=== PATIENT | female | born 1990 | race Asian ===

== ENCOUNTER 2019-03-25 19:50 | Inpatient (IN) | payer BC ==
[2019-03-25 21:41] LABS: BASO % 0.6 % (0-2.0); EOS % 1.2 % (0-4.5); HEMATOCRIT 35.4 % (32.4-45.2); HEMOGLOBIN 11.5 GM/dL (10.7-15.3); LYMPH % 24.2 % (8-40); MCH 29.3 pg (25.7-33.7); MCHC 32.5 g/dl (32.0-36.0); MEAN CELL VOLUME 90.4 fl (80-96); MEAN PLT VOLUME 10.4 fl (7.5-11.1); MONO % 10.8 % (3.8-10.2); NEUT % 63.2 % (42.8-82.8); PLATELET COUNT 154 K/MM3 (134-434); RBC 3.91 M/mm3 (3.60-5.2); RDW 16.5 % (11.6-15.6); WHITE BLOOD COUNT 7.3 K/mm3 (4.0-10.0)
[2019-03-25 22:03] LABS: INR 0.88 (0.83-1.09); PROTHROMBIN TIME (PATIENT) 10.4 SEC (9.7-13.0)
[2019-03-25 22:05] LABS: ACTIVATED PTT 25.3 SECONDS (25.2-36.5); BLOOD UREA NITROGEN 9.4 mg/dL (7-18); CALCIUM 8.9 mg/dL (8.5-10.1); CREATININE 0.5 mg/dL (0.55-1.3); POTASSIUM 3.7 mmol/L (3.5-5.1)
[2019-03-25] MEDS ORDERED: BUTORPHANOL TARTRATE 1 MG/ML VIAL IVPB ONE (22:22)
[2019-03-25] MEDS ORDERED: PROMETHAZINE HCL 25 MG/1 ML VIAL IVPUSH ONE (22:22)
[2019-03-25] MEDS ORDERED: DINOPROSTONE 10 MG VAGINAL SUPPOSITORY VG ONE (22:24)
[2019-03-25] MEDS ORDERED: AMPICILLIN SODIUM 2 GM VIAL IVPB ONE (23:00)
[2019-03-25] MEDS: ELECTROLYTE-148 SOLN 1,000 ML IV SCH (23:00)
--- NOTE | 2019-03-25 23:20 | HP ---
Past Medical History - Primary Care Physician PCP:: Carol Saba - Admission Chief Complaint: Labor. POst dates History of Present Illness: 28 yo EDC EGA admitted for cervidal induction History Source: Patient Home Medications - Allergies Allergies/Adverse Reactions: Allergies Allergy/AdvReac Type Severity Reaction Status Date / Time No Known Allergies Allergy Verified 03/20/19 16:22 - Home Medications Home Medications: Ambulatory Orders Vits96/Iron Fum/Folic [ Tablet] 1 tab PO DAILY 03/20/19 Review of Systems - Review of Systems Constitutional: reports: No Symptoms Eyes: reports: No Symptoms HENT: reports: No Symptoms Neck: reports: No Symptoms Cardiovascular: reports: No Symptoms Respiratory: reports: No Symptoms Gastrointestinal: reports: No Symptoms Genitourinary: reports: No Symptoms Breasts: reports: No Symptoms Reported Musculoskeletal: reports: No Symptoms Integumentary: reports: No Symptoms Neurological: reports: No Symptoms Endocrine: reports: No Symptoms Hematology/Lymphatic: reports: No Symptoms Psychiatric: reports: No Symptoms Physical Exam - Maternity Vital Signs: Vital Signs Temperature 98.9 F 03/25/19 22:00 Pulse Rate 77 03/25/19 22:00 Respiratory Rate 20 03/25/19 22:00 Blood Pressure 102/68 03/25/19 22:00 O2 Sat by Pulse Oximetry (%) Breast(s): Yes: WNL - Abdominal Exam/OB Number of Fetuses: Single Presentation: Vertex Category: I Accelerations: Non-Uniform Decelerations: None - Vaginal Exam/OB Vaginal Bleediing: No Dilatation (cm): closed Effacement (%): 60 Presentation: Vertex/Position Station: -1 - Physical Exam Musculoskeletal: Yes: WNL Extremities: Yes: WNL Edema: No Psychiatric: Yes: WNL, Alert, Oriented - Labs Lab Results: CBC, BMP 03/25/19 21:15 03/25/19 21:15 Hemorrhage Risk Assessment - Risk Factors Risk Score: 0 Risk Level: Low Risk Problem List - Problems (1) Post-dates Code(s): O48.0 - POST-TERM Qualifiers: Post-term type: 40-42 weeks gestation Qualified Code(s): O48.0 - Post-term Assessment/Plan 41 week post dates GBS CAt 1 Plan dhiraj cervidil stadol
[2019-03-25] MEDS ORDERED: AMPICILLIN SODIUM 2 GM VIAL ONE (23:56)
[2019-03-26 00:16] VITALS: BMI 29.2
[2019-03-26] MEDS: AMPICILLIN SODIUM 1 GM VIAL IVPB SCH ×6 (03:00→23:00)
[2019-03-26] MEDS ORDERED: AMPICILLIN SODIUM 1 GM VIAL ONE ×5 (04:21→18:31)
[2019-03-26] MEDS: OXYTOCIN 30 UNITS in 0.9% NS 30 UNIT/500 ML INFUS.BAG IVPB SCH ×2 (05:15)
[2019-03-26] MEDS ORDERED: OXYTOCIN 30 UNITS in 0.9% NS 30 UNIT/500 ML INFUS.BAG IVPB ONE (05:18)
--- NOTE | 2019-03-26 05:56 | LDN ---
Oxytocin Pre-Use Checklist Date and Time completed: 03/26/19 0555 Physician order on chart: Yes Current history and physical on chart: Yes Indication for induction is documented: Yes record on chart: Yes Pelvis is documented by physician to be clinically adequate: Yes Estimated weight within past week (clinical or sono): Less than 4500 grams in a non-diabetic woman Gestational age is documented: Yes Consent signed: Yes Status of the cervix is assessed and documented: Yes Presentation is assessed and documented: Yes Assessment completed and includes: A minimum of 30 minutes of monitoring is required prior to start, At least 2 accelerations (15bpm x 15sec) in 30 minutes are present
[2019-03-26] MEDS ORDERED: OXYTOCIN 30 UNITS in 0.9% NS 30 UNIT/500 ML INFUS.BAG IVPB SCH (06:00)
[2019-03-26] MEDS: ELECTROLYTE-148 SOLN 1,000 ML IV SCH ×2 (08:00→22:30)
[2019-03-26 08:52] LABS: POC NITRAZINE POS
--- NOTE | 2019-03-26 09:50 | PN ---
Ante-Partal Exam - Subjective Vital Signs: Vital Signs Temperature 98.4 F 03/26/19 08:00 Pulse Rate 87 03/26/19 08:00 Respiratory Rate 18 03/26/19 08:00 Blood Pressure 112/56 L 03/26/19 08:00 O2 Sat by Pulse Oximetry (%) Bleeding: Yes Bleeding Description: Mild Headache: No Visual changes: No Right upper quadrant pain: No Pain (scale 1-10): 7 - Contractions Contractions: Yes Regularity: Regular Intensity: Moderate - Exam during Labor Heart Rate: 140 Variability: Moderate Category: I Monitor Accelerations: Present Monitor Decelerations: None Exam: Vaginal Dilatation (cm): 1 Effacement (%): 90 Amniotic Membrane Status: Ruptured Amniotic Fluid: Clear Station: -2 - Assessment/Plan Assessment/Plan: 28 y/o P0 with SIUP at 41 weeks, IOL s/p cervidil, on pitocin, s/p SROM continue pitocin
--- NOTE | 2019-03-26 19:45 | PN ---
Ante-Partal Exam - Subjective Subjective: Pitocin at 9 pt tolerating contractions Vital Signs: Vital Signs Temperature 98.2 F 03/26/19 19:00 Pulse Rate 88 03/26/19 19:00 Respiratory Rate 20 03/26/19 19:00 Blood Pressure 122/70 03/26/19 19:00 O2 Sat by Pulse Oximetry (%) Bleeding: Yes Bleeding Description: Mild Headache: No Visual changes: No Right upper quadrant pain: No - Contractions Contractions: Yes Regularity: Regular Intensity: Mod/Strong - Exam during Labor Heart Rate: 140 Variability: Moderate Category: I Monitor Accelerations: Present Monitor Decelerations: None Exam: Vaginal Dilatation (cm): 1.5 Effacement (%): 80 Amniotic Membrane Status: Ruptured Presentation: Vertex Station: -2 - Assessment/Plan Assessment/Plan: Pt tolerating labor continue with pitocin at this time re evaluate in a few hours/if pt desires medication
--- NOTE | 2019-03-26 23:17 | PN ---
Ante-Partal Exam - Subjective Subjective: Pt feeling more uncomfortable, desires to know options. Vital Signs: Vital Signs Temperature 98.1 F 03/26/19 22:00 Pulse Rate 89 03/26/19 22:00 Respiratory Rate 20 03/26/19 22:00 Blood Pressure 121/75 03/26/19 22:00 O2 Sat by Pulse Oximetry (%) Bleeding: Yes Bleeding Description: Mild Headache: No Visual changes: No Right upper quadrant pain: No - Contractions Contractions: Yes Regularity: Regular Intensity: Mod/Strong - Exam during Labor Heart Rate: 150 Variability: Moderate Category: I Monitor Accelerations: Present Monitor Decelerations: None Exam: Vaginal Dilatation (cm): 2 Effacement (%): 80 Amniotic Membrane Status: Ruptured Presentation: Vertex Station: -2 - Assessment/Plan Assessment/Plan: Pt with minimal cervical change from 1cm this a.m. at 9am to 2cm now on pitocin since 6am. Pt desires delivery at this time. R/b/A discussed, plan made for c section informed consent obtained NPO, Brasher, prep, Bicitra anesthesia/nursery made aware
[2019-03-26] MEDS ORDERED: CITRIC ACID/SODIUM CITRATE 30 ML UNIT-DOSE CUP PO ONE (23:29)
[2019-03-26] MEDS ORDERED: morphine SULFATE/PF 0.5 MG/ML (2cc Syringe - QUVA) ONE (23:49)
[2019-03-27] MEDS ORDERED: IBUPROFEN 800 MG/8 ML IJ IVPB PRN (00:01)
[2019-03-27] MEDS ORDERED: oxyCODONE HCL 5 MG TABLET PO PRN (00:01)
[2019-03-27] MEDS ORDERED: METHYLERGONOVINE MALEATE 0.2 MG/1 ML AMP IM PRN (00:01)
[2019-03-27] MEDS ORDERED: OXYTOCIN 10 UNITS/ML VIAL ONE (00:15)
--- NOTE | 2019-03-27 01:07 | OP ---
Operative Note - Note: Operative Date: 03/27/19 Pre-Operative Diagnosis: failed induction of labor, right ovarian cyst, IUP at 41 weeks Operation: primary LTCS, left para tubal cystectomy, right para ovarian cystectomy Findings: left 3cm paratubal cyst, right 5cm para ovarian cyst Surgeon: Makenna Srivastava Cyber Defense Analyst: Bijal Alberts Anesthesiologist/ENVIRONMENTAL TECHNICIAN: Carlos Valle Anesthesia: Spinal Specimens Removed: placenta, right para ovarian cyst wall Estimated Blood Loss (mls): 800 Operative Report Dictated: Yes
[2019-03-27] MEDS ORDERED: OXYTOCIN 20 UNITS in 0.9% NS 20 UNIT/1,000 ML INFUS.BAG IV ONE ×2 (01:27→08:34)
[2019-03-27] MEDS ORDERED: OXYTOCIN 20 UNITS in 0.9% NS 20 UNIT/1,000 ML INFUS.BAG IV SCH (08:15)
--- NOTE | 2019-03-27 10:43 | OP ---
DATE OF OPERATION: 03/27/2019 PREOPERATIVE DIAGNOSIS: Failed induction of labor, intrauterine at 41 weeks, right ovarian cyst. POSTOPERATIVE DIAGNOSIS: Failed induction of labor, intrauterine at 41 weeks, right ovarian cyst. PROCEDURE: Primary low transverse section, left paratubal cystectomy, and right paraovarian cystectomy. SURGEON: Makenna Srivastava DO ANESTHESIA: Spinal by Carlos Valle M.D. PHARMACY MESSENGER: Bijal Alberts MD COMPLICATIONS: None. Sponge, needle, and instrument count correct. ESTIMATED BLOOD LOSS: 800 mL. DISPOSITION: Stable to PACU. BRIEF HISTORY AND PROCEDURE: Patient is a 28-year-old female who was admitted to [facility] on March 25, 2019, for induction of labor. She underwent a Cervidil induction and then after spontaneous rupture of membranes was augmented with Pitocin. The patient was on Pitocin for approximately 20 hours and had made minimal cervical change from 0.5 cm dilated to 1.5 cm dilated. At this point, the patient was requesting a section secondary to the failed induction of labor. The plan was made to proceed with section. Consents for the procedure were signed. The patient was then taken back to the operating room. Given spinal anesthesia by Dr. Valle. She was prepped and draped in the usual sterile fashion in the dorsal supine position. A Brasher catheter was placed under sterile conditions. A hard time-out was performed. A Pfannenstiel skin incision was created in the skin with a scalpel and carried to the underlying layer of rectus fascia sharply. The fascia was incised on either side of the midline sharply, and the fascial incision was carried in superolateral direction sharply. The fascia was tented upward and dissected off the underlying layer of rectus fascia sharply. The musculature was identified, laterally, and the peritoneum was identified and entered bluntly and carefully dissected to allow for adequate room for delivery. A bladder blade was then inserted. A transverse incision was created in the lower uterine segment and extended in superolateral direction bluntly. The was then delivered from the right occiput transverse position. The head and bilateral shoulders were delivered with ease along with the remainder of the infant. The cord was clamped and and cut. The infant was taken over to the warmer to be assessed by the nursery staff where Apgars of 9 and 9 were assigned. Placenta was delivered intact and manually extracted. The uterus was exteriorized from the abdomen, inspected, and cleared of all amniotic membrane and debris with a dry lap sponge. The hysterotomy was reapproximated in a double-layered closure using 0 Biosyn in both layers in a running, locked fashion. Excellent hemostasis was achieved. A left paratubal cyst was noted at this time, which was ruptured and drained. The right paraovarian approximately 5-cm cyst was appreciated at this time, which was dissected away from the peritoneum next to the ovary using blunt and sharp dissection. The defect was cauterized with the Bovie device. A piece of Surgicel was placed, and it was sewn over to close the defect. Excellent hemostasis was achieved. The uterus was placed back in the abdomen. Bilateral gutters were inspected and cleared of all blood clot and debris. The hysterotomy was again noted to be hemostatic. The peritoneum was reapproximated using 2-0 chromic in a running fashion. The musculature was reapproximated in a single interrupted suture using 1 Vicryl. The fascia was reapproximated using 1 Vicryl in a running fashion. The subcutaneous tissue was irrigated and reapproximated using 2 interrupted sutures of 1 Vicryl , and the skin was reapproximated using 3-0 Vicryl in a subcuticular fashion. Steri- Strips were applied. The patient tolerated the procedure well and is recovering in stable condition after the procedure. Sponge, needle, and instrument count was reported to be correct. MAKENNA SRIVASTAVA DO /[id number] MTDD
[2019-03-27] MEDS: SIMETHICONE 80 MG TAB.CHEW (FP) PO PRN (21:20)
[2019-03-27] MEDS: oxyCODONE HCL 5 MG TABLET PO PRN (21:20)
[2019-03-28] MEDS ORDERED: BISACODYL 10 MG SUPP.RECT RC PRN (00:01)
[2019-03-28] MEDS: IBUPROFEN 600 MG TABLET (FP) PO PRN ×5 (02:18→22:29)
[2019-03-28] MEDS: oxyCODONE HCL 5 MG TABLET PO PRN ×5 (02:18→22:29)
[2019-03-28] MEDS: SIMETHICONE 80 MG TAB.CHEW (FP) PO PRN ×4 (02:18→22:29)
[2019-03-28 07:54] LABS: BASO % 0.4 % (0-2.0); EOS % 0.7 % (0-4.5); HEMATOCRIT 25.7 % (32.4-45.2); HEMOGLOBIN 8.5 GM/dL (10.7-15.3); LYMPH % 10.6 % (8-40); MEAN PLT VOLUME 9.7 fl (7.5-11.1); MONO % 6.3 % (3.8-10.2); PLATELET COUNT 139 K/MM3 (134-434); RBC 2.82 M/mm3 (3.60-5.2); RDW 17.1 % (11.6-15.6); WHITE BLOOD COUNT 13.3 K/mm3 (4.0-10.0)
--- NOTE | 2019-03-28 08:24 | PN ---
Progress Note (short form) - Note Progress Note: Anesthesia postop note, POD#1. S/P under spinal with duramorph. Pat seen amd examined. VSS. ambulating, Tolerating PO. Pain well controlled. Score 2-4/10. No apparent post anesthesia complications.
[2019-03-28] MEDS: FERROUS SO4 325 MG TABLET (FP) PO SCH (22:29)
[2019-03-29] MEDS: IBUPROFEN 600 MG TABLET (FP) PO PRN ×4 (04:57→20:43)
[2019-03-29] MEDS: oxyCODONE HCL 5 MG TABLET PO PRN ×4 (04:58→20:41)
[2019-03-29] MEDS: SIMETHICONE 80 MG TAB.CHEW (FP) PO PRN ×2 (09:12→21:23)
[2019-03-29] MEDS: FERROUS SO4 325 MG TABLET (FP) PO SCH ×2 (09:12→21:23)
--- NOTE | 2019-03-29 11:49 | PN ---
Post Note - Post Date of Delivery: 03/27/19 Vital Signs: Vital Signs - 24 hr 03/28/19 03/29/19 22:00 08:00 Temperature 97.5 F L 97.9 F Pulse Rate 82 93 H Respiratory 18 20 Rate Blood Pressure 91/52 L 96/65 - Subjective Subjective: No Complaints - Objective Breast: Not engorged Abdomen: Soft, Non-tender Uterus: Fundus firm Vagina: Scant lochia Extremities: Non-tender - Assessment/Plan (1) Post-dates Assessment: Other (POD2) Plan: Routine Care
[2019-03-30 07:41] LABS: BASO % 0.4 % (0-2.0); EOS % 2.5 % (0-4.5); HEMATOCRIT 25.9 % (32.4-45.2); HEMOGLOBIN 8.6 GM/dL (10.7-15.3); LYMPH % 13.9 % (8-40); MCH 30.1 pg (25.7-33.7); MCHC 33.3 g/dl (32.0-36.0); MEAN CELL VOLUME 90.3 fl (80-96); MONO % 5.9 % (3.8-10.2); NEUT % 77.3 % (42.8-82.8); PLATELET COUNT 183 K/MM3 (134-434); RBC 2.86 M/mm3 (3.60-5.2); RDW 17.5 % (11.6-15.6); WHITE BLOOD COUNT 9.7 K/mm3 (4.0-10.0)
[2019-03-30] MEDS: IBUPROFEN 600 MG TABLET (FP) PO PRN ×2 (08:14→12:54)
[2019-03-30] MEDS: SIMETHICONE 80 MG TAB.CHEW (FP) PO PRN ×2 (08:14→12:54)
[2019-03-30 08:43] VITALS: BP 112/85; PULSE 105; TEMP 98.9
[2019-03-30] MEDS: FERROUS SO4 325 MG TABLET (FP) PO SCH (09:40)
--- NOTE | 2019-04-01 17:18 | PATH ---
Surgical Pathology Report Patient Name: CHELSEY FORBES [facility]. Rec. #: [id number] /Age/Gender: 1990 (Age: 28) / F Account: [id number] Location: [facility] OBS/PLANNER Taken: 03/27/2019 Received: 03/27/2019 Reported: 04/01/2019 Physicians: Makenna Srivastava M.D. Specimen(s) Received A: PLACENTA B: RIGHT PARAOVARIAN CYST Clinical History , IUP at 41 weeks, failed induction Final Diagnosis A. PLACENTA, SECTION: 520 G THIRD TRIMESTER PLACENTA. TRIVASCULAR UMBILICAL CORD WITH MILD ACUTE PHLEBITIS. MEMBRANES WITH MODERATE ACUTE CHORIOAMNIONITIS AND MECONIUM LADEN MACROPHAGES. B. PAROVARIAN CYST, RIGHT, CYSTECTOMY: BENIGN CYST CONSISTENT WITH SEROUS CYSTADENOMA. Electronically Signed Kristin Dale M.D. Gross Description A. The specimen is received fresh labeled placenta and is a 520 gram, 15.5 x 15.0 x 3.0 cm. placenta with attached membranes and umbilical cord. The attached membranes are christy, meconium stained, translucent with focal opacities and insert marginally. The umbilical cord measures 21 cm. in length and averages 1.0 cm. in diameter. The cord inserts eccentrically, 1.0 cm. to the nearest margin. No true knots or strictures are identified. Cut surface of the umbilical cord reveals 3 vessels. The surface is fung green with moderate fibrin deposition and appropriate caliber vessels. The maternal surface is red-brown with focal defects. Sectioning reveals red-brown, spongy parenchyma. No lesions are identified. Immigration [employer] sections are submitted in three cassettes as follows: 1- membrane rolls and umbilical cord; 2-3- full thickness sections of placenta. B. Received in formalin labeled "right parovarian cyst," is a 3.4 x 2.0 x 0.4 cm focally disrupted cyst. The outer surface is christy-fung and smooth. The inner lining is smooth. No excrescences are identified. Immigration [employer] Inspector sections are submitted in one cassette. /03/31/2019 saudi03/31/2019
== END 2019-03-30 13:30 | disposition home or self-care (01) | DRG 788 ==
LOC: JLDR 19:50 → J3W 03-27 12:45
PROVIDERS: ADMIT Obstetrics & Gynecology; ATTEND Obstetrics & Gynecology
PROC: 10D00Z1 Extraction of Products of Conception, Low, Open Approach (ICD-10-PCS; principal; 2019-03-27)
PROC: 0UB00ZZ Excision of Right Ovary, Open Approach (ICD-10-PCS; 2019-03-27)
DX: O48.0 Post-term pregnancy (principal); Z3A.40 40 weeks gestation of pregnancy; O61.0 Failed medical induction of labor; O34.83 Maternal care for other abnormalities of pelvic organs, third trimester; N83.201 Unspecified ovarian cyst, right side; Z37.0 Single live birth
CPT/HCPCS: 36415; 80048; 83986-QW; 85025; 85610; 85730; 86593; 86850; 86900; 86901; 87389; 88307-TC